=== PATIENT | male | born 1965 | race Caucasian/White ===

== ENCOUNTER 2021-06-09 11:08 | Emergency (ER) | payer OTHER ==
[~2021-06-09 11:08] MED LIST: GABAPENTIN800 MG PO; OXYCODONE HCL30 MG PO; OXYMORPHONE HCL5 MG PO; SEROQUEL25 MG PO
[2021-06-09 13:01] LABS: HEMOGLOBIN 12.4 gm/dl (14.0-17.5); WHITE BLOOD COUNT 11.4 K/UL (4.5-11.0)
[2021-06-09 13:29] LABS: BUN/CREATININE RATIO 28 (0-10)
== END 2021-06-09 19:02 | disposition home or self-care (01) ==
LOC: ER1 11:08
PROVIDERS: Physician Assistant
DX: R51.9 Headache, unspecified (principal); R07.89 Other chest pain; E78.5 Hyperlipidemia, unspecified; F17.200 Nicotine dependence, unspecified, uncomplicated; M62.82 Rhabdomyolysis
CPT/HCPCS: 70450; 71045; 80053; 82550; 82553; 82803; 84484; 85025; 85379; 93005; 96374; 99285; J1885